=== PATIENT | female | born 1960 | race Caucasian/White ===

== ENCOUNTER 2018-06-23 23:17 | Emergency (ER) | payer OTHER ==
[2018-06-23] MEDS ORDERED: HYDROcodone/APAP 5-325MG 1 EACH TAB PO STA (23:43)
--- NOTE | 2018-06-23 23:46 | ED ---
Upper Extremity HPI - General Chief Complaint: Extremity Injury, Upper Stated Complaint: [facility] FALL Time Seen by Provider: 06/23/18 23:40 Source: patient, RN notes reviewed Mode of arrival: ambulatory Limitations: physical limitation - History of Present Illness Initial Comments: This is a 58-year-old female who presents to the emergency department with chief complaint of work-related left wrist injury. Patient states that at 10: 10 this evening she slipped and fell at work. She states that she landed backwards with her left arm extended behind her. She reports pain to the left wrist. Denies any other injuries or trauma. Denies head, neck or back pain. Denies loss of consciousness, nausea or vomiting, chest pain or shortness of breath. - Related Data Previous Rx's Medication Instructions Recorded HYDROcodone/APAP 5-325MG [[place] 5] 1 each PO Q6HR PRN #10 tab 06/24/18 Allergies Allergy/AdvReac Type Severity Reaction Status Date / Time No Known Allergies Allergy Verified 06/23/18 23:29 Review of Systems ROS Statement: Those systems with pertinent positive or pertinent negative responses have been documented in the HPI. ROS Other: All systems not noted in ROS Statement are negative. Past Medical History Past Medical History: Cancer History of Any Multi-Drug Resistant Organisms: None Reported Additional Past Surgical History / Comment(s): left arm CA, 4 lymphnodes Past Psychological History: No Psychological Hx Reported Smoking Status: Current every day smoker Past Alcohol Use History: Occasional Past Drug Use History: None Reported General Exam - General Exam Comments Initial Comments: General: Awake and alert, well-developed; in no apparent distress. HEENT: Head atraumatic, normocephalic. Pupils are equal, round and reactive to light. Extraocular movements intact. Oropharynx moist without erythema or exudate. Neck: Supple. Normal ROM. Cardiovascular: Regular rate and rhythm. No murmurs, rubs or gallops. Chest symmetrical. Respiratory: Lungs clear to auscultation bilaterally. No wheezes, rales or rhonchi. Normal respiratory effort with no use of accessory muscles. Musculoskeletal: Obvious gross deformity of the left wrist. Patient is able to move the fingers. Sensation is intact. Radial pulses are 2+ equal and palpable bilaterally. Capillary refill is less than 2 seconds. Skin: [place], warm and dry without rashes or lesions. Neurological: Alert and oriented x3. CN II-XII grossly intact. Speech is fluent and answers are appropriate. No focal neuro deficits. Psychiatric: Normal mood and affect. No overt signs of depression or anxiety noted. Limitations: physical limitation Course Vital Signs 06/23/18 23:25 Temperature 97.6 F Pulse Rate 94 Respiratory 18 Rate Blood Pressure 128/77 O2 Sat by Pulse 97 Oximetry Procedures - Orthopedic Splinting/Casting Injury #1 Side: left Upper Extremity Injury Location: long arm, wrist Upper Extremity Immobilizer: sling/shoulder immobilizer, sugar tong splint, synthetic pre-padded splint Medical Decision Making - Medical Decision Making This is a 58-year-old female who presents to the emergency department with chief complaint of left wrist injury. Obvious gross deformity of the left wrist. X-ray reveals acute fractures of radius and ulna. Case discussed with attending physician, Dr. Dubose. An OCL sugar tong splint was placed and patient tolerated well without complication. She is neurovascularly intact. She will be given contact information to follow-up with orthopedics. Patient will also be provided with pain medication. Vitals are stable and she is in acute distress. She will be discharged home at this time. She is in agreement and voices understanding. All questions were answered. - Radiology Data Radiology results: report reviewed, image reviewed Left wrist x-ray impression: Acute fractures of the radius and ulna. Impacted radius comminuted fracture. Disposition Clinical Impression: Fracture of wrist Disposition: HOME SELF-CARE Condition: Good Instructions: Wrist Fracture in Adults (ED) Additional Instructions: Please keep splint clean, dry and intact. Please follow-up with Dr. Rosado, [facility] within 1-2 days. Please take medications as prescribed. Please follow up with primary care provider within 1-2 days. Return to emergency department if symptoms should worsen or any concerns arise. Prescriptions: HYDROcodone/APAP 5-325MG [[place] 5] 1 each PO Q6HR PRN #10 tab PRN Reason: Pain Is patient prescribed a controlled substance at d/c from ED?: Yes When asked, does pt state using other controlled substances?: No If prescribed controlled substance>3 days was MAPS reviewed?: Prescribed <3 Days Referrals: Blaine Meyers MD [Primary Care Provider] - 1-2 days Robert Rosado DO [Doctor of Osteopathic Medicine] - 1-2 days Time of Disposition: 00:26
--- NOTE | 2018-06-24 00:11 | XR ---
EXAMINATION TYPE: XR wrist limited LT DATE OF EXAM: 06/23/2018 COMPARISON: NONE HISTORY: Wrist pain TECHNIQUE: 2 views FINDINGS: There is impacted comminuted transverse fracture of the distal radius. There is slight ante rior angulation at the fracture site. There is no dislocation. There is fracture of ulnar styloid pro cess. Carpal bones appear intact. IMPRESSION: Acute fractures of the radius and ulna. Impacted radius comminuted fracture.
[2018-06-24 01:00] VITALS: BP 141/96; PULSE 82; RESP 20; TEMP 98.1
== END 2018-06-24 01:01 | disposition home or self-care (01) ==
LOC: EC 23:17
DX: S52.502A Unspecified fracture of the lower end of left radius, initial encounter for closed fracture (principal); S52.612A Displaced fracture of left ulna styloid process, initial encounter for closed fracture; F17.200 Nicotine dependence, unspecified, uncomplicated; Z85.89 Personal history of malignant neoplasm of other organs and systems; W01.0XXA Fall on same level from slipping, tripping and stumbling without subsequent striking against object, initial encounter; Y99.0 Civilian activity done for income or pay
CPT/HCPCS: 29105; 99283